=== PATIENT | male | born 1970 | race Caucasian/White ===

== ENCOUNTER 2016-12-20 13:29 | Inpatient (IN) | payer MEDICAID ==
[2016-12-20 13:30] VITALS: BMI 21.6
[2016-12-20 14:25] LABS: ADD MANUAL DIFF? NO
[2016-12-20 14:27] LABS: BASO # 0.08 [, K/mm3] (0.0-2.0); BASO % 1.4 % (0.0-3.0); EOS # 0.5 (0.0-0.7); EOS % 8.8 % (1.5-5.0); GRAN # 2.81 (1.4-6.5); GRAN % 48.6 % (50.0-68.0); LYMPH # 1.9 (1.2-3.4); LYMPH % 32.9 % (22.0-35.0); MEAN CELL VOLUME 95.1 fL (80.0-105.0); MEAN CORPUSCULAR HEMOGLOBIN 33.8 pg (25.0-35.0); MEAN CORPUSCULAR HGB CONC 35.6 g/dl (31.0-37.0); MEAN PLATELET VOLUME 8.3 fl (7.0-11.0); MONO # 0.5 (0.1-0.6); MONO % 8.3 % (1.0-6.0); PLATELET COUNT 285 [, 10^3/uL] (120.0-450.0); RED CELL DISTRIBUTION WIDTH 13.8 % (11.5-14.5); WHITE BLOOD COUNT 5.8 [, 10^3/ul] (4.5-11.0)
[2016-12-20 14:37] LABS: ALB/GLOB RATIO 1.4 (1.1-1.8); ALKALINE PHOSPHATASE 131 U/L (38-133); ALT/SGPT 19 U/L (7-56); AST/SGOT 24 U/L (15-59); BILIRUBIN,TOTAL 0.5 mg/dL (0.2-1.3); BLOOD UREA NITROGEN 7 mg/dL (7-21); CALCIUM 9.4 mg/dL (8.4-10.5); CARBON DIOXIDE 28 mmol/L (21-33); CHLORIDE 103 mmol/L (98-107); GFR AFRICAN-AMERICAN > 60; GLUCOSE,RANDOM 66 mg/dL (70-110); POTASSIUM 3.8 mmol/L (3.6-5.0); SODIUM 142 mmol/L (132-148); TOTAL PROTEIN 7.3 g/dL (5.8-8.3)
--- NOTE | 2016-12-20 14:52 | RAD ---
HISTORY: pes eval COMPARISON: 11/25/2016 FINDINGS: LUNGS: Lung volumes are increased -background emphysema/COPD is consistent with this. PLEURA: No significant pleural effusion identified, no pneumothorax apparent.The minimal biapical pleural thickening is as before CARDIOVASCULAR: Normal. OSSEOUS STRUCTURES: No significant abnormalities. VISUALIZED UPPER ABDOMEN: Normal. OTHER FINDINGS: None. IMPRESSION: No active disease.
[2016-12-20 15:37] LABS: URINE BILIRUBIN NEGATIVE (NEGATIVE); URINE BLOOD NEGATIVE (NEGATIVE); URINE GLUCOSE (UA) NEGATIVE (NEGATIVE); URINE KETONE NEGATIVE (NEGATIVE); URINE LEUKOCYTE ESTERASE NEGATIVE Leu/uL (NEGATIVE); URINE PROTEIN NEGATIVE mg/dL (<30 mg/dL); URINE UROBILINOGEN 0.2 E.U./dL (<1 E.U./dL)
[2016-12-20 15:38] LABS: URINE APPEARANCE CLEAR (CLEAR); URINE COLOR YELLOW (YELLOW)
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
[2016-12-20 18:04] VITALS: O2SAT 98
--- NOTE | 2016-12-20 19:51 | CARD ---
APPROVED REPORT EKG Measurement Heart [id number] <Conclusion> Normal sinus rhythm Normal ECG
[2016-12-20] MEDS ORDERED: Alum-Mag Hydrox-Simethicone Susp (30 mL) PO PRN (21:08)
[2016-12-20] MEDS ORDERED: Magnesium Hydroxide Susp 30 ml UD PO PRN (21:08)
[2016-12-21 08:51] LABS: CHOLESTEROL 210 mg/dL (130-200); GLUCOSE,FASTING 98 mg/dL (65-110)
[2016-12-21 09:05] LABS: FREE T4 0.47 ng/dL (0.78-2.19)
[2016-12-21 09:19] LABS: THYROID STIMULATING HORMONE 2.13 mIU/mL (0.46-4.68)
[2016-12-21] MEDS ORDERED: Albuterol-Ipratrop 3 mg / 0.5 (3 ml) UD IH PRN (11:17)
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
[2016-12-21] MEDS: Multivitamin With Minerals Tab PO SCH (11:38)
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
[2016-12-22] MEDS: Multivitamin With Minerals Tab PO SCH (09:30)
--- NOTE | 2016-12-22 10:07 | PN ---
DATE: 12/22/2016 The patient seen on the psychiatric floor in his bed, under the covers. Sleeping well. He is fine. He is starting to feel better this morning. He is taking his medications. He looks more refreshed than the other day. He has an appetite. VITAL SIGNS: Are 98.5 temp, 76 pulse, 158/111 and 139/93, blood pressure. I will check his blood pr essure meds and add something to this. 20 respiratory rate, and 98% O2 sat on room air. HEAD: Atraumatic, normocephalic. HEART: Regular rate. LUNGS: Decreased breath sounds, but clear. ABDOMEN: Soft. EXTREMITIES: No edema. He is currently on Ativan, DuoNeb, folic acid, Lipitor, Maalox, milk of magnesia, Neurontin, Prozac, Seroquel, Sonata, vitamins, Tylenol, and vitamin B1. LAST LABORATORIES: A 5.8 white count, 15.3 hemoglobin, 285 platelets. A 142 sodium, potassium of 3. 8, BUN 7, creatinine 1. GFR is greater than 60. Sugar is 98. Calcium is 9.4, total bili is 0.5. A ST is 24, ALT is 19, triglycerides of 194, cholesterol is 210. TSH 2.13. Urine is clear. I am going to add Norvasc 5 mg to his blood pressure and his pill regimen. Will keep an eye on his b lood pressure; check his labs tomorrow. He is here for depression, alcohol abuse, suicidal thoughts, high cholesterol, high triglycerides, an d now hypertension. Santiago Thomas DO cc: [id number] TT: 12/22/2016 10:06:56 Confirmation # [id number] Dictation # [id number] david
--- NOTE | 2016-12-22 15:57 | PCM.PYCHPN ---
Psychiatric Progress Note - Psychiatric Progress Note Patient seen today, length of contact: 30 minutes Patient Chief Complaint: "I want you to call my sister, and let her know if she will not help me I will on the streets, but I don't want you to tell her that I'm drinking" Problems Identified/Issues Discussed: Suicide/ homicide prevention, past psychiatric h/o, current psychiatric symptoms , medical problems, risk/benefits and alternatives of medications, medications compliance, coping strategies, substance abuse h/o, relapse prevention, importance of follow up with psychiatrist and therapist, discharge plan. Medical Problems: H/O pancreatitis, HTN, COPD, emphizema (pt still drinking and still smoking, but waiting for the disability for his emphisema and chronic pancreatitis) Diagnostic Results: 12/20/16 14:08 12/20/16 14:08 Lab Results 12/21/16 08:00: Fasting Glucose 98, Triglycerides 194 H, Cholesterol 210 H, LDL Cholesterol Direct 121, HDL Cholesterol 73 H, Free T4 0.47 L, TSH 3rd Generation 2.13, RPR Nonreactive 12/20/16 15:09: Urine Color Yellow, Urine Appearance Clear, Urine pH 6.0, Ur Specific [place] 1.010, Urine Protein Negative, Urine Glucose (UA) Negative, Urine Ketones Negative, Urine Blood Negative, Urine Nitrate Negative, Urine Bilirubin Negative, Urine Urobilinogen 0.2, Ur Leukocyte Esterase Negative, Urine Opiates Screen Negative, Urine Methadone Screen Negative, Ur Barbiturates Screen Negative, Ur Phencyclidine Scrn Negative, Ur Amphetamines Screen Negative , U Benzodiazepines Scrn Negative, U Oth Cocaine Metabols Negative, U Cannabinoids Screen Positive H 12/20/16 14:08: WBC 5.8, RBC 4.52, Hgb 15.3, Hct 43.0, MCV 95.1, MCH 33.8, MCHC 35.6, RDW 13.8, Plt Count 285, MPV 8.3, Gran % 48.6 L, Lymph % (Auto) 32.9, [place] % (Auto) 8.3 H, Eos % (Auto) 8.8 H, Baso % (Auto) 1.4, Gran # 2.81, Lymph # 1.9, [place] # 0.5, Eos # 0.5, Baso # 0.08, Sodium 142, Potassium 3.8, Chloride 103, Carbon Dioxide 28, Anion Gap 15, BUN 7, Creatinine 1.0, Est GFR ( Amer) > 60, Est GFR (Non-Af Amer) > 60, Random Glucose 66 L, Calcium 9.4, Total Bilirubin 0.5, AST 24, ALT 19, Alkaline Phosphatase 131, Total Protein 7.3, Albumin 4.2, Globulin 3.1, Albumin/Globulin Ratio 1.4, Salicylates < 1 L, Acetaminophen < 10.0 L, Alcohol, Quantitative 178 H Vital Signs Temp Pulse Resp BP Pulse Ox 12/22/16 09:28 74 110/73 12/22/16 06:00 98.0 F 74 20 110/73 12/21/16 16:08 84 158/111 H 12/21/16 10:18 98.5 F 76 20 139/93 H 12/20/16 19:47 80 18 116/72 98 12/20/16 17:30 76 18 120/68 98 12/20/16 15:30 80 18 110/70 98 12/20/16 13:38 97.9 F 91 H 16 104/73 100 DSM 5 Symptoms Update: This is a 46 years old male currently homeless, long history of bipolar disorder , history of multiple suicidal attempts in the past, history of alcohol use disorder and opioid use disorder and cannabis abuse, history of multiple rehabs and detoxes in the past poor social support from his family, was brought himself into the hospital complaining of worsening depression, possible suicidal ideations, needs further evaluation and stabilization. Pt initially refused to come to the treatment team meeting, but later on showed up reluctantly. Patient presented to have fair personal hygiene, flat affect, patient is poor and unreliable historian most likely it is related to antisocial personality and secondary gain. Patient reported that he still feels depressed at the same time he feels "relaxed and little better" patient asked this public relations writer to give a call to his sister and asked her to let patient stay with her patient also requested this public relations writer did do not disclose information about his alcohol consumption at the same time patient deemed to be manipulative, and by the end of the conversation patient changed his mind and does not want this public relations writer to give her a call. Later on patient process public relations writer requesting to be discharged. When this public relations writer asked where you eat he is going patient said that his friend's house but at the same time he does not want to provide contact information for his friend. pt denied drinking, when this public relations writer confronted pt about his alcohol level on admission pt said "it was only one time", will change ativan to PRN. pt denied hearing voices and seeing things, denied paranoid ideations. Pt is manipulative, lying, secondary gain cannot be excluded. Impression: DSM 5 Diagnosis: rule out bipolar disorder most recent episode mixed severe with psychotic symptoms Alcohol use disorder Alcohol withdrawals better Rule out substance-induced mood disorder r/o MALINGERING Medication Change: Yes (ativan prn) Medical Record Reviewed: Yes Consults ordered or reviewed: med consult appreciated Mental Status Examination - Cognitive Function Orientation: Person, Place Memory: Intact Attention: Poor Concentration: Poor Association: WNL Fund of Knowledge: WNL - Mood Mood: Depressed ("better") - Affect Affect: Flat - Formal Thought Process Formal Thought Process: No Impairment (deneid) - Suicidal Ideation Suicidal Ideation: No - Homicidal Ideation Homicidal Ideation: No Goal/Treatment Plan - Goal/Treatment Plan Need for Continued Stay: Remain at risks for inpatient hospitalization, Severe depression anxiety, Discharge may exacerbated symptoms, Failed transitioning, Severe functional impairment Progress Toward Problem(s) and Goals/Treatment Plan: milieu/structure/supportive therapy hydralazine 50mg bid d/c seroquel 300mg hs resumed gabapentin 300mg tid resumed prozac 40mg daily continued Atorvastatin [Lipitor] 10 mg PO resumed Famotidine [Pepcid] 20 mg PO HS resumed Folic Acid 1 mg PO DAILY resumed Multivitamin Therapeutic Tab resumed Nicotine 7 mg/24 hr resumed SW evaluation f/u on labs will monitor vitals will monitor closely collaterals by , pt was drinking and because of that a lot of social problems, pt's GF kicked pt out. pt submitted 48hr notice, will ask for second opinion, pt could be d/c either on sunday or sunday Estimated Date of D/C: 12/25/16 - Smoking Cessation Smoking Cessation Initiated: Yes
--- NOTE | 2016-12-23 08:57 | PCM.PYCHPN ---
Psychiatric Progress Note - Psychiatric Progress Note Patient seen today, length of contact: 25 minutes Patient Chief Complaint: "okay" Problems Identified/Issues Discussed: I reviewed assessment a recent notes. Patient was scheduled to be discharged AMA on a 48 hour letter today however patient changed his mind last night and rescinded his 48 hour letter. Indicates he would like to stay longer for continued stabilization. At this time patient reports fair mood and some improvement since admission. He is not hopeless or suicidal and he denies having any thoughts to harm others. Thus far tolerating his medications and denies any acute withdrawal symptoms. Patient also denies having any perceptual disturbance and does not appear to be responding to internal stimuli. He is fairly coherent and responses are relevant during our interview today. Staff notes do not indicate any behavioral issues overnight Diagnostic Results: rule out bipolar disorder most recent episode mixed severe with psychotic symptoms Alcohol use disorder Alcohol withdrawals better Rule out substance-induced mood disorder r/o MALINGERING Medication Change: Yes (ativan prn) Medical Record Reviewed: Yes Mental Status Examination - Cognitive Function Orientation: Person, Place, Situation Memory: Intact Attention: WNL Concentration: WNL Association: WNL Fund of Knowledge: WNL - Mood Mood: Neutral - Affect Affect: Broad - Speech Speech: Appropriate - Formal Thought Process Formal Thought Process: No Impairment - Suicidal Ideation Suicidal Ideation: No - Homicidal Ideation Homicidal Ideation: No Goal/Treatment Plan - Goal/Treatment Plan Need for Continued Stay: Remain at risks for inpatient hospitalization, Severe depression anxiety, Discharge may exacerbated symptoms, Failed transitioning, Severe functional impairment Progress Toward Problem(s) and Goals/Treatment Plan: c/w current tx No new labs overnight Vitals reviewed and noted below: Selected Entries 12/23/16 08:51 Temperature 97.3 F L Pulse Rate 73 Respiratory 17 Rate Blood Pressure 110/65 Estimated Date of D/C: 12/25/16
[2016-12-23] MEDS: Multivitamin With Minerals Tab PO SCH (10:32)
--- NOTE | 2016-12-23 13:57 | PN ---
DATE: 12/23/2016 I saw the patient this morning sitting up in bed. He is doing so much better than when he came in. He is feeling better. He is smiling. He is talking nicely. He is eating and he is participating. PHYSICAL EXAMINATION: VITAL SIGNS: He has a 97.2 temp, 73 pulse, 110/65 blood pressure, 17 respiratory rate. HEENT: His head is atraumatic, normocephalic. HEART: Regular rate. LUNGS: Clear to auscultation. ABDOMEN: Soft. EXTREMITIES: No edema. MEDICATIONS: He is on Ativan, DuoNeb, folic acid, Geodon, Lipitor, Maalox, milk of magnesia, Neuront in, Norvasc, Prozac, Seroquel, Sonata, and Thera-Tabs and vitamin B1and Tylenol. LABORATORY DATA: He has a good CBC, a good SMA-20. Urine is good. Tox is bad with marijuana and al cohol. RPR is negative. He is doing fairly well, better than when he came in. I think being back on his medications helped h im a lot. He has severe depression, anxiety. Hopefully, he will improve and be discharged once appr opriate for psychiatry to say discharge, but I definitely thinks he is improved. We will follow. Santiago Thomas DO cc: [id number] TT: 12/23/2016 13:56:10 Confirmation # [id number] Dictation # [id number] tn
[2016-12-24 07:35] VITALS: RESP 20
[2016-12-24] MEDS: Multivitamin With Minerals Tab PO SCH (08:32)
--- NOTE | 2016-12-24 08:58 | PCM.PYCHPN ---
Psychiatric Progress Note - Psychiatric Progress Note Patient seen today, length of contact: 25 minutes Patient Chief Complaint: "getting a little better" Problems Identified/Issues Discussed: I reviewed recent notes and met with patient at bedside. Patient put in a 48 hour letter yesterday at 5:45pm, requesting discharge today or tomorrow. Today he indicates preference to be discharged tomorrow due to anxiety and "hallucinations". At this time patient reports fair mood and some improvement since admission. He is not hopeless or suicidal and he denies having any thoughts to harm others. Patient does not appear to be responding to internal stimuli. Thus far tolerating his medications and denies any acute withdrawal symptoms. He is fairly coherent and responses are relevant during our interview today. Staff notes do not indicate any behavioral issues over the weekend. Diagnostic Results: rule out bipolar disorder most recent episode mixed severe with psychotic symptoms Alcohol use disorder Alcohol withdrawals better Rule out substance-induced mood disorder r/o MALINGERING Medication Change: Yes (d/c'ed ativan 2 mg q8 prn for alcohol withdrawal,) Medical Record Reviewed: Yes Mental Status Examination - Cognitive Function Orientation: Person, Place, Situation Memory: Intact Attention: WNL Concentration: WNL Association: [facility] Fund of Knowledge: [facility] - Mood Mood: Neutral - Affect Affect: Broad, Other (anxious) - Speech Speech: Appropriate - Formal Thought Process Formal Thought Process: Hallucinations (reports hallucinations, not responding to internal stimuli) - Suicidal Ideation Suicidal Ideation: No - Homicidal Ideation Homicidal Ideation: No Goal/Treatment Plan - Goal/Treatment Plan Need for Continued Stay: Remain at risks for inpatient hospitalization, Severe depression anxiety, Discharge may exacerbated symptoms, Failed transitioning, Severe functional impairment Progress Toward Problem(s) and Goals/Treatment Plan: c/w current tx d/c'ed ativan 2 mg q8 prn for alcohol withdrawal, patient hasn't received any doses 12/22/16, 12/23/16 or today, vitals stable No new labs over the weekend Note: patient put in another 48 hour letter on 12/23/16 at 5:45 pm Vitals reviewed and noted below: Selected Entries 12/24/16 07:34 Temperature 97.9 F Pulse Rate 63 Respiratory 20 Rate Blood Pressure 94/60 L Estimated Date of D/C: 12/25/16
--- NOTE | 2016-12-24 11:17 | PN ---
DATE: 12/24/2016 I saw the patient in the day room, talking to some of the patient's, watching TV. He is fairly comfortable. He tells me he is feeling well. He tells me he is going home tomorrow and he does look and sound a lot better than when he came in. He is no longer depressed or have any bad thoughts. PHYSICAL EXAMINATION: VITAL SIGNS: 97.9 temp, 63 pulse, 94/60 blood pressure, 20 respiratory rate. HEAD: Atraumatic, normocephalic. Throat is moist. NECK: Supple. HEART: Regular rate. LUNGS: Clear to auscultation. ABDOMEN: Soft. EXTREMITIES: No edema. MEDICATIONS: He is on Ativan, DuoNeb, folic acid, Geodon, Lipitor, Maalox, milk of magnesia, Neurontin, Norvasc, Prozac, Seroquel, Thera-Tabs, vitamins, Tylenol, thiamine. He is still having his medications adjusted by psychiatry and I think he is be doing much better than when he came in. I discussed taking his medications when he goes home, it is one of his biggest problems, he stops taking his medication, gets into trouble. He understood what I had to say. He has got severe depression, anxiety, alcohol abuse, high cholesterol, hypertension. We discussed the drugs and alcohol and behaving. He understands it is important to take his medications as directed so far. Santiago Thomas DO cc: [id number] TT: 12/24/2016 11:17:28 Confirmation # [id number] Dictation # [id number] MTDD
[2016-12-25 07:44] VITALS: BP 93/62; PULSE 60; TEMP 98.1
[2016-12-25] MEDS: Multivitamin With Minerals Tab PO SCH (08:47)
--- NOTE | 2016-12-25 09:53 | PN ---
DATE: 12/25/2016 I saw the patient sitting out of bed to chair in the psychiatric unit. He is comfortable. He is fee ling well. He tells me he is leaving today. I do not know what psychiatry thinks. He might have si gned a 48-hour, but he is comfortable. He tells me he is feeling better. He actually looks better. PHYSICAL EXAMINATION: VITAL SIGNS: He has a 98.1 temp, 60 pulse, 93/62 blood pressure, 20 respiratory rate. HEENT: His head is atraumatic, normocephalic. HEART: Regular rate. LUNGS: Clear to auscultation. ABDOMEN: Soft. EXTREMITIES: No edema. He is going to go home on his medications, Ativan, DuoNeb, folic acid, Geodon, Lipitor, Maalox, milk of magnesia, Neurontin, Norvasc, Prozac, Seroquel, Sonata, Thera-Tabs, Tylenol, and vitamin B1. He understands he is not supposed to drink any alcohol anymore, do any drugs or anything like that if he goes home. That is what gets him into trouble. I told him I would see him in the office and hop efully he will do well. He is here for depression, alcohol abuse, schizophrenia, high cholesterol, anxiety, hypertension. As per psychiatry. I do think he improved. Santiago Thomas DO cc: [id number] TT: 12/25/2016 09:52:53 Confirmation # [id number] Dictation # [id number]
--- NOTE | 2016-12-25 14:42 | PCM.PYCHDC ---
Mental Status Examination - Mental Status Examination Orientation: Person, Place, Situation, Time Memory: Intact Mood: Neutral Affect: Constricted (but reactive and mood congruent) Speech: Appropriate Attention: WNL Concentration: WNL Language: Word Retrieval Association: WNL Fund of Knowledge: WNL Formal Thought Process: No Impairment Description of patient's judgement and insight: Pt has improved insight into mental and medical illness, pt was compliant with medications and unit rules and regulations, pt was going to groups, was calm, cooperative, socially appropriate, no behavioral incidents, no agitation, no aggression. Psychotic Thoughts and Behaviors: Pt denied v/a/t hallucinations, denied paranoid ideations, pt does not appear to be psychotic, and thought process is goal directed. Suicidal Ideation: No Current Homicidal Ideation?: No Plan: pt adamantly denied thoughts of harming self or others denied intent or plan. Discharge Summary - Discharge Note Reason for Hospitalization: admitted for worsening of depression, voices, inability to function. Psychiatric History (includes Medical, Family, Personal Hx): see HPI Laboratory Data: 12/20/16 14:08 12/20/16 14:08 Lab Results 12/21/16 08:00: Fasting Glucose 98, Triglycerides 194 H, Cholesterol 210 H, LDL Cholesterol Direct 121, HDL Cholesterol 73 H, Free T4 0.47 L, TSH 3rd Generation 2.13, RPR Nonreactive 12/20/16 15:09: Urine Color Yellow, Urine Appearance Clear, Urine pH 6.0, Ur Specific Adams 1.010, Urine Protein Negative, Urine Glucose (UA) Negative, Urine Ketones Negative, Urine Blood Negative, Urine Nitrate Negative, Urine Bilirubin Negative, Urine Urobilinogen 0.2, Ur Leukocyte Esterase Negative, Urine Opiates Screen Negative, Urine Methadone Screen Negative, Ur Barbiturates Screen Negative, Ur Phencyclidine Scrn Negative, Ur Amphetamines Screen Negative , U Benzodiazepines Scrn Negative, U Oth Cocaine Metabols Negative, U Cannabinoids Screen Positive H 12/20/16 14:08: WBC 5.8, RBC 4.52, Hgb 15.3, Hct 43.0, MCV 95.1, MCH 33.8, MCHC 35.6, RDW 13.8, Plt Count 285, MPV 8.3, Gran % 48.6 L, Lymph % (Auto) 32.9, Briscoe % (Auto) 8.3 H, Eos % (Auto) 8.8 H, Baso % (Auto) 1.4, Gran # 2.81, Lymph # 1.9, Briscoe # 0.5, Eos # 0.5, Baso # 0.08, Sodium 142, Potassium 3.8, Chloride 103, Carbon Dioxide 28, Anion Gap 15, BUN 7, Creatinine 1.0, Est GFR ( Amer) > 60, Est GFR (Non-Af Amer) > 60, Random Glucose 66 L, Calcium 9.4, Total Bilirubin 0.5, AST 24, ALT 19, Alkaline Phosphatase 131, Total Protein 7.3, Albumin 4.2, Globulin 3.1, Albumin/Globulin Ratio 1.4, Salicylates < 1 L, Acetaminophen < 10.0 L, Alcohol, Quantitative 178 H Vital Signs Temp Pulse Resp BP Pulse Ox 12/25/16 07:43 98.1 F 60 20 93/62 L 12/24/16 18:30 72 110/73 12/24/16 07:34 97.9 F 63 20 94/60 L 12/24/16 04:55 82 125/91 H 12/23/16 16:29 82 125/91 H 12/23/16 10:32 73 110/65 12/23/16 08:51 97.3 F L 73 17 110/65 12/23/16 03:48 84 124/82 12/22/16 16:33 84 124/82 12/22/16 09:28 74 110/73 12/22/16 06:00 98.0 F 74 20 110/73 12/21/16 16:08 84 158/111 H 12/21/16 10:18 98.5 F 76 20 139/93 H 12/20/16 19:47 80 18 116/72 98 12/20/16 17:30 76 18 120/68 98 12/20/16 15:30 80 18 110/70 98 12/20/16 13:38 97.9 F 91 H 16 104/73 100 Consultations:: List each consultation separately and include: 1. Reason for request. 2. Findings. 3. Follow-up Consultations: med consult appreciated see notes for more detailed information Summary of Hospital Course include:: 1. Description of specific treatment plan utilized for patients during their course of treatmen. 2. Summarize the time- course for resolution of acute symptoms and/or regressed behaviors. 3. Describe issues identified and worked on during hospitalization. 4. Describe medication utilized. 5. Describe medical problems identified and treated. 6. Reassessment of suicide risk Summary of Hospital Course: This is a 46 years old male currently homeless, long history of bipolar disorder , history of multiple suicidal attempts in the past, history of alcohol use disorder and opioid use disorder and cannabis abuse, history of multiple rehabs and detoxes in the past poor social support from his family, was brought himself into the hospital complaining of worsening depression, possible suicidal ideations, needs further evaluation and stabilization. Pt refused to speak to this assembly instructions writer, refused to be evaluated because "I cannot talk right now, I feel bad", this assembly instructions writer interviewed pt in his room with medical students. Pt presented to have fare personal hygiene, fair ADLs, multiple tattoos, somewhat irritable and annoyed by this assembly instructions writer. Patient presented to have marginal personal hygiene, fear ADLs,appears to be a depressed, had flat affect, seems to be disengaged in the interview. P reported that his family is not willing to help him in regards of his homelessness and as well as joblessness. Patient reported his roommate kicked him out because she is "Crazy, she has bipolar", pt said he was feeling depressed, hopeless for the past two days, reported to hear voices, but denied command type. pt reported to have suicidal ideation, no plan or intent. Patient also reported that he has difficult to stay focused and concentrate, difficulty to fall asleep and stay asleep patient also reported being anxious, also hearing whispers most recent was yesterday. Patient also reported to have panic attacks, and generalized anxiety symptoms. pt relapsed on alcohol was drinking on daily basis, pt also was smoking weed. Patient reported drinking on daily basis. smokes pack a day, counseling provided Smoking Cessation Counseling: The patient was counseled as to the multiple risks to his/her health from continued use of tobacco products. It was explained that continuing to smoke may lead to multiple short and laborer marine terminal negative health consequences, including but not limited to mouth/esophageal /lung cancer, COPD, and heart disease. He/she states he/she understands these risks, and also understands the options and resources available to him/her to help him/her stop smoking. Nicotine replacement therapy, local hotlines, and local resources were discussed as viable options for helping him/her stop his/her tobacco use. The total time spent counseling the patient regarding tobacco cessation was 3 minutes Past psychiatric history History of multiple inpatient psychiatric hospitalizations, As to recent was in [place] in March 2016.,Patient reports history of suicidal ideation in the past but denies any attempts. Patient also denies any homicidal ideation or attempt in the past. Past medical history H/O pancreatitis, HTN, COPD Social history Patient currently homeless and unemployed [facility] pharmacy was called medications confirmed: meds filled december 13: hydralazine 50mg bid seroquel 300mg hs gabapentin 300mg tid Lexapro 10mg daily wellburin 150mg daily prozac 40mg daily Ur nursing staff patient is self isolating, not participating in treatment plan , appears to be depressed, irritable, annoyed. 12/20/16 14:08 12/20/16 14:08 Lab Results 12/21/16 08:00: Fasting Glucose 98, Triglycerides 194 H, Cholesterol 210 H, LDL Cholesterol Direct 121, HDL Cholesterol 73 H, Free T4 0.47 L, TSH 3rd Generation 2.13 12/20/16 15:09: Urine Color Yellow, Urine Appearance Clear, Urine pH 6.0, Ur Specific Adams 1.010, Urine Protein Negative, Urine Glucose (UA) Negative, Urine Ketones Negative, Urine Blood Negative, Urine Nitrate Negative, Urine Bilirubin Negative, Urine Urobilinogen 0.2, Ur Leukocyte Esterase Negative, Urine Opiates Screen Negative, Urine Methadone Screen Negative, Ur Barbiturates Screen Negative, Ur Phencyclidine Scrn Negative, Ur Amphetamines Screen Negative , U Benzodiazepines Scrn Negative, U Oth Cocaine Metabols Negative, U Cannabinoids Screen Positive H 12/20/16 14:08: WBC 5.8, RBC 4.52, Hgb 15.3, Hct 43.0, MCV 95.1, MCH 33.8, MCHC 35.6, RDW 13.8, Plt Count 285, MPV 8.3, Gran % 48.6 L, Lymph % (Auto) 32.9, Briscoe % (Auto) 8.3 H, Eos % (Auto) 8.8 H, Baso % (Auto) 1.4, Gran # 2.81, Lymph # 1.9, Briscoe # 0.5, Eos # 0.5, Baso # 0.08, Sodium 142, Potassium 3.8, Chloride 103, Carbon Dioxide 28, Anion Gap 15, BUN 7, Creatinine 1.0, Est GFR ( Amer) > 60, Est GFR (Non-Af Amer) > 60, Random Glucose 66 L, Calcium 9.4, Total Bilirubin 0.5, AST 24, ALT 19, Alkaline Phosphatase 131, Total Protein 7.3, Albumin 4.2, Globulin 3.1, Albumin/Globulin Ratio 1.4, Salicylates < 1 L, Acetaminophen < 10.0 L, Alcohol, Quantitative 178 H Vital Signs Temp Pulse Resp BP Pulse Ox 12/21/16 10:18 98.5 F 76 20 139/93 H 12/20/16 19:47 80 18 116/72 98 12/20/16 17:30 76 18 120/68 98 12/20/16 15:30 80 18 110/70 98 12/20/16 13:38 97.9 F 91 H 16 104/73 100 over the course of this hospitalization patient was stabilized on the following medications: Seroquel 300 mg at the nighttime for mood stabilization voices Prozac 40 mg daily for depression and anxiety Neurontin 4 neuropathy and anxiety multivitamins thiamine and folic acid and tolerated medications well, no side effects observed or reported, patient was seen by medical team, all medications were resumed for patienthypertension, pancreatitis. Patient submitted 48 hour notice twice over this weekend,at present moment patient wants to be discharged, patient denied being depressed, denied thoughts of killing himself, denied thoughts of killing others. Patient was seen at the treatment team meeting, treatment team meeting feels patient is ready for discharge, patient presented well. We see social work specialist notes for more detailed information. Over the course of this hospitalization pt was attending groups, pt also had medication management, had therapeutic milieu. Overall pt improved significantly, pt's affect became brighter, pt was less depressed, has realistic future oriented plans, pt also does not appear to be psychotic, or anxious, pt was socially appropriate, no behavioral issues, pts insight improved as well and soon pt deemed to be ready for discharge. At the time of the discharge pt denied been depressed, denied thoughts of harming self or others, denied psychotic symptoms, and pt does not appeared to be psychotic, denied been anxious, was considered to pose no threat to self or others, will be following up at [facility], information about follow up appointment, time and address provided to the pt, it is patient responsibility to follow up with outpatient clinic, PMD as well as specialists (see note for more detailed information). In case pt will need to obtain results of studies pending at discharge pt was provided with contact information of Psychiatric Inpatient unit [phone] as well as Medical Record Department [phone]. Nicotine patch was offered Counseling about smoking and alcohol cessation provided AA meetings as well as [facility] smoking cessation treatment program information was provided by the this assembly instructions writer provided pt with the prescriptions for all of his psychotropic medications pt willing to be on naltrexone for alcohol cravings. please see medication reconciliation form Pt was educated about safety plan in case of worsening of symptoms or in case of suicidal or homicidal ideation call 911 or go to the nearest ER, also was educated to take meds as prescribed and stay away from drugs, pt verbalized understanding. - Diagnosis (1) Alcohol dependence Status: Acute (2) Alcohol use disorder Status: Acute (3) Anxiety disorder, unspecified Status: Acute (4) Bipolar 1 disorder Status: Acute - Final Diagnosis (DSM 5) Condition upon Discharge: FAIR Disposition: HOME/ ROUTINE Follow-up Treatment Plan: At the time of the discharge pt denied been depressed, denied thoughts of harming self or others, denied psychotic symptoms, and pt does not appeared to be psychotic, denied been anxious, was considered to pose no threat to self or others, will be following up at [facility], information about follow up appointment, time and address provided to the pt, it is patient responsibility to follow up with outpatient clinic, PMD as well as specialists (see note for more detailed information). In case pt will need to obtain results of studies pending at discharge pt was provided with contact information of Psychiatric Inpatient unit [phone] as well as Medical Record Department [phone]. Nicotine patch was offered Counseling about smoking and alcohol cessation provided AA meetings as well as [facility] smoking cessation treatment program information was provided by the this assembly instructions writer provided pt with the prescriptions for all of his psychotropic medications pt willing to be on naltrexone for alcohol cravings. please see medication reconciliation form Pt was educated about safety plan in case of worsening of symptoms or in case of suicidal or homicidal ideation call 911 or go to the nearest ER, also was educated to take meds as prescribed and stay away from drugs, pt verbalized understanding. Prescriptions/Medication Reconciliation: Folic Acid 1 mg PO DAILY #14 tab Atorvastatin [Lipitor] 20 mg PO DIN #7 tab Gabapentin [Neurontin] 300 mg PO TID #45 cap amLODIPine [Norvasc] 5 mg PO DAILY #7 tab Fluoxetine HCl [Prozac] 40 mg PO DAILY #14 cap Naltrexone [Revia] 50 mg PO DAILY #14 tab Quetiapine Fumarate [Seroquel] 300 mg PO HS #14 tablet Multimineral/Multivitamin [Therapeutic-M Tab] 1 tab PO DAILY #14 tab Thiamine [Vitamin B1 Tab] 100 mg PO DAILY #14 tab - Smoking Cessation Smoking Cessation Medication prescribed: Yes - Antipsychotic Medications Pt discharged on 2 or more routine antipsychotic medications: No
== END 2016-12-25 11:46 | disposition home or self-care (01) | DRG 430 ==
LOC: ED 13:29 → ERH 19:22 → PSYC 21:02
PROVIDERS: ADMIT Psychiatry & Neurology Psychiatry; ATTEND Psychiatry & Neurology Psychiatry
PROC: GZ3ZZZZ Medication Management (ICD-10-PCS; principal; 2016-12-20)
DX: F31.9 Bipolar disorder, unspecified (principal); F41.0 Panic disorder [episodic paroxysmal anxiety]; R45.851 Suicidal ideations; K86.1 Other chronic pancreatitis; F20.9 Schizophrenia, unspecified; I10 Essential (primary) hypertension; J44.9 Chronic obstructive pulmonary disease, unspecified; F11.90 Opioid use, unspecified, uncomplicated; F41.1 Generalized anxiety disorder; F12.10 Cannabis abuse, uncomplicated; F17.210 Nicotine dependence, cigarettes, uncomplicated; J45.909 Unspecified asthma, uncomplicated; E78.00 Pure hypercholesterolemia, unspecified; F10.20 Alcohol dependence, uncomplicated; Y90.6 Blood alcohol level of 120-199 mg/100 ml; Z91.14 Patient's other noncompliance with medication regimen; Z59.0 Homelessness; Z56.0 Unemployment, unspecified